=== PATIENT | male | born 1945 | race Caucasian/White ===

== ENCOUNTER 2018-10-12 16:55 | Inpatient (IN) | payer MEDICARE ==
[~2018-10-12] VITALS: Ht 185.4 cm; Wt 92.0 kg
[~2018-10-12 16:55] MED LIST: ATOR20TA37 PO; FLUO20CA19 PO; GLIP5TAB10 PO; PREG75CA PO; TRAZ-137 PO
--- NOTE | 2018-10-12 17:15 | NUR ---
PT REPORTS TO ED C/O SEVERE ABD PAIN. STATES PAIN STARTED AFTER RECENT NEW PRESCRIPTION OF PAIN MEDS R/T R FOOT PAIN. PT STATES HE HAS HAD ABD PAIN, CONSRTIPATION AND BEEN ANURIC X 4 DAYS. PT IS DAILYB PERITONEAL DIALYSIS PT, CATH IN PLACE TO ABD. FAMILY AT BEDSIDE, CALL LIGHT IN REACH. PT REFUSING TO GET INTO GOWN AT THIS TIME.
[2018-10-12] MEDS ORDERED: ONDANSETRON 2MG/ML, 2ML IVPush ONE (17:30)
[2018-10-12] MEDS ORDERED: MORPHINE SULFATE 4 MG/ML, 1ML IVPush PRN (17:30)
[2018-10-12] MEDS ORDERED: AMPICILLIN/SULBACTAM 3 GM in SODIUM CHLORIDE 0.9% 100 ML IV ONE (17:30)
[2018-10-12] MEDS ORDERED: SODIUM CHLORIDE FLUSH 10ML SYR IVF ONE (17:30)
[2018-10-12] MEDS ORDERED: VANCOMYCIN PER PHARMACY MC PRN ×2 (17:30→20:30)
[2018-10-12] MEDS ORDERED: ONDANSETRON 2MG/ML, 2ML ONE (18:00)
[2018-10-12] MEDS ORDERED: VANCOMYCIN 1,700 MG in SODIUM CHLORIDE 0.9% 250 ML IV ONE (18:00)
[2018-10-12] MEDS ORDERED: MORPHINE SULFATE 4 MG/ML, 1ML ONE (18:00)
[2018-10-12 18:09] LABS: HCT (SEDRATE) 37.9 % (39.2-51.8)
[2018-10-12 18:15] LABS: MD YES; MEAN CORPUSCULAR HGB CONC 33.1 g/dL (33.2-36.2); MEAN CORPUSCULAR VOLUME 90.6 fL (81-97); MEAN PLATELET VOLUME 8.9 fL (7.4-10.4); PLATELET COUNT 221 x10^3/uL (130-400); RED BLOOD COUNT 4.21 x10^6/uL (4.38-5.82); RED CELL DISTRIBUTION WIDTH 14.9 % (9.4-14.8)
[2018-10-12 18:22] LABS: ALANINE AMINOTRANSFERASE 14 U/L (12-78); ALBUMIN 2.7 g/dL (3.4-5.0); ANION GAP 12 mmol/L (5-15); CALCIUM 8.4 mg/dL (8.5-10.1); CHLORIDE 104 mmol/L (98-107); CREATININE 7.68 mg/dL (0.7-1.3)
[2018-10-12 18:28] LABS: ALKALINE PHOSPHATASE 94 U/L (45-117); BILIRUBIN,TOTAL 0.3 mg/dL (0.2-1.0); TOTAL PROTEIN 7.2 g/dL (6.4-8.2)
--- NOTE | 2018-10-12 18:32 | NUR ---
PT RESTING ON GURNEY, CALL LIGHT IN REACH, ABX INFUSING PER ORDER. AWAITING CT RESULTS. PT STATES PAIN HAS BECOME TOLERABLE AFTER MEDS GIVEN.
[2018-10-12] MEDS ORDERED: CALC0.25 PO (19:02)
[2018-10-12] MEDS ORDERED: TAMS0.4C2 PO (19:02)
[2018-10-12] MEDS ORDERED: OXYC1TAB7 PO (19:02)
[2018-10-12] MEDS ORDERED: ERGO500017 PO (19:02)
[2018-10-12] MEDS ORDERED: CALC667C PO (19:02)
[2018-10-12] MEDS ORDERED: CLOP75TA52 PO (19:02)
[2018-10-12] MEDS ORDERED: CITA20TA9 PO (19:02)
[2018-10-12] MEDS ORDERED: LEVO100T5 PO (19:02)
[2018-10-12] MEDS ORDERED: CEPH-376 PO (19:02)
--- NOTE | 2018-10-12 19:05 | NUR ---
report to imani justice.
[2018-10-12 19:07] LABS: <PLATELET ESTIMATE> ADEQUATE; <PLT MORPHOLOGY> NORMAL PLT MORPH; <RBC MORPHOLOGY> NORMAL; EOS#(MANUAL) 0.23 x10^3/uL (0.0-0.4); EOS% (MANUAL) 2 % (1-7); LYMPH#(MANUAL) 1.86 x10^3/uL (1-3.4); LYMPHS% (MANUAL) 16 % (22-44); MONOS#(MANUAL) 0.23 x10^3/uL (0.3-2.7); MONOS% (MANUAL) 2 % (2-9); SEG#(MANUAL) 9.28 x10^3/uL (1.8-6.8); SEGS% (MANUAL) 80 % (42-75)
[2018-10-12] MEDS ORDERED: ONDANSETRON ODT 4 MG PO PRN (20:30)
[2018-10-12] MEDS ORDERED: BISACODYL 10 MG SUPP PR PRN (20:30)
[2018-10-12 20:46] VITALS: BP 159/70
[2018-10-12 20:49] LABS: HEMOGLOBIN A1C 7.5 % (4.2-6.3)
[2018-10-12] MEDS ORDERED: PHARMACOKINETIC MONITORING MC PRN (21:00)
[2018-10-12] MEDS ORDERED: OXYcodone/APAP 5/325MG TABLET PO SCH (21:00)
[2018-10-12] MEDS ORDERED: PHARMACOKINETIC CONSULTATION MC ONE (21:00)
[2018-10-12] MEDS: HEPARIN 5,000 UNITS/ML, 1ML SQ SCH (21:11)
[2018-10-12] MEDS: ERGOCALCIFEROL 50,000 UNIT CAPSULE PO SCH (21:12)
[2018-10-12] MEDS: CALCIUM ACETATE 667 MG CAPSULE PO SCH (21:12)
[2018-10-12] MEDS: ATORVASTATIN 20 MG TABLET PO SCH (21:12)
[2018-10-12] MEDS: SODIUM CHLORIDE FLUSH 10ML SYR IVF SCH (21:12)
[2018-10-12] MEDS: TRAZODONE 100MG TABLET PO SCH (21:12)
[2018-10-12] MEDS: OXYcodone/APAP 5/325MG TABLET PO SCH (21:12)
[2018-10-12 21:21] VITALS: BP 159/70
[2018-10-12] MEDS: POLYETHYLENE GLYCOL 17 GM PACKET PO PRN (21:47)
[2018-10-12] MEDS ORDERED: PREGABALIN 75 MG CAPSULE ONE (22:20)
[2018-10-12] MEDS: PREGABALIN 75 MG CAPSULE PO SCH (22:26)
[2018-10-13] MEDS: PIPERACILLIN/TAZO/PMX 3.375GM 50 ML IV SCH ×3 (00:53→12:15)
[2018-10-13 01:42] VITALS: BP 154/68
[2018-10-13] MEDS: ACETAMINOPHEN 325 MG TABLET PO PRN (01:50)
[2018-10-13] MEDS: HEPARIN 5,000 UNITS/ML, 1ML SQ SCH ×2 (04:41→12:15)
[2018-10-13 05:50] LABS: BASOPHILS # (AUTO) 0.01 x10^3/uL (0-0.1); BASOPHILS % (AUTO) 0 % (0-1); EOSINOPHILS # (AUTO) 0.17 x10^3/uL (0-0.4); EOSINOPHILS % (AUTO) 2 % (1-7); LYMPHOCYTES # (AUTO) 0.78 x10^3/uL (1-3.4); LYMPHOCYTES % (AUTO) 8 % (22-44); MD NO; MEAN CORPUSCULAR HEMOGLOBIN 30.2 pg (27.5-34.5); MEAN CORPUSCULAR HGB CONC 33.6 g/dL (33.2-36.2); MEAN CORPUSCULAR VOLUME 89.6 fL (81-97); MEAN PLATELET VOLUME 9.4 fL (7.4-10.4); MONOCYTES # (AUTO) 0.75 x10^3/uL (0.2-0.8); MONOCYTES % (AUTO) 8 % (2-9); NEUTROPHILS # (AUTO) 8.11 x10^3/uL (1.8-6.8); NEUTROPHILS % (AUTO) 83 % (42-75); PLATELET COUNT 211 x10^3/uL (130-400); RED BLOOD COUNT 4.12 x10^6/uL (4.38-5.82); RED CELL DISTRIBUTION WIDTH 14.5 % (9.4-14.8)
[2018-10-13 06:03] VITALS: BP 110/51
[2018-10-13 06:03] LABS: CHLORIDE 104 mmol/L (98-107)
[2018-10-13 06:07] LABS: ALANINE AMINOTRANSFERASE 13 U/L (12-78); ALBUMIN 2.5 g/dL (3.4-5.0); ALKALINE PHOSPHATASE 84 U/L (45-117); ANION GAP 11 mmol/L (5-15); BILIRUBIN,TOTAL 0.3 mg/dL (0.2-1.0); CREATININE 7.55 mg/dL (0.7-1.3); TOTAL PROTEIN 6.8 g/dL (6.4-8.2)
[2018-10-13] MEDS: OXYcodone/APAP 5/325MG TABLET PO SCH (06:25)
[2018-10-13] MEDS ORDERED: DEXTROSE 50%, 50ML SYRINGE IVPush PRN (06:30)
[2018-10-13] MEDS ORDERED: DEXTROSE 4 GM TAB.CHEW PO PRN (06:30)
[2018-10-13] MEDS ORDERED: GLUCAGON 1 MG IM PRN (06:30)
[2018-10-13] MEDS: SODIUM CHLORIDE FLUSH 10ML SYR IVF SCH ×3 (07:41→22:12)
[2018-10-13] MEDS: LEVOTHYROXINE 100 MCG TABLET PO SCH (07:59)
[2018-10-13] MEDS: CALCITRIOL 0.25 MCG CAPSULE PO SCH (07:59)
[2018-10-13] MEDS: TAMSULOSIN 0.4 MG CAP.ER.24H PO SCH (07:59)
[2018-10-13] MEDS: CLOPIDOGREL 75 MG TABLET PO SCH (08:00)
[2018-10-13] MEDS: CALCIUM ACETATE 667 MG CAPSULE PO SCH ×3 (08:00→22:11)
[2018-10-13] MEDS: CITALOPRAM 20 MG TABLET PO SCH (08:00)
[2018-10-13] MEDS: SENNA/DOCUSATE TABLET PO SCH (08:00)
[2018-10-13 08:15] VITALS: BP 101/59
[2018-10-13] MEDS ORDERED: PREGABALIN 75 MG CAPSULE PO SCH (09:00)
[2018-10-13] MEDS: INSULIN LISPRO 100 UNITS/ML, PEN SQ-INSULIN SCH ×3 (11:00→21:00)
[2018-10-13 14:00] VITALS: BP 100/61
[2018-10-13] MEDS ORDERED: HEPARIN 5,000 UNITS/ML, 1ML IV ONE (17:00)
[2018-10-13] MEDS ORDERED: HEPARIN 5,000 UNITS/ML, 1ML IV PRN (17:00)
[2018-10-13] MEDS ORDERED: HEPARIN 25,000 UNITS/500ML PMX 500 ML IV PRN (17:00)
[2018-10-13 19:00] VITALS: BP 95/55
[2018-10-13] MEDS ORDERED: PIPERACILLIN/TAZO 2.25 GM in NS 50 ML IV SCH (21:00)
[2018-10-13] MEDS: ATORVASTATIN 20 MG TABLET PO SCH (22:10)
[2018-10-13] MEDS: PIPERACILLIN/TAZO 2.25 GM in NS 50 ML IV SCH (22:10)
[2018-10-13] MEDS: PREGABALIN 75 MG CAPSULE PO SCH (22:10)
[2018-10-13] MEDS: TRAZODONE 100MG TABLET PO SCH (22:11)
[2018-10-13] MEDS: POLYETHYLENE GLYCOL 17 GM PACKET PO PRN (22:14)
[2018-10-14 02:00] VITALS: BP 92/50
[2018-10-14] MEDS: PIPERACILLIN/TAZO 2.25 GM in NS 50 ML IV SCH ×2 (05:33→14:00)
[2018-10-14 05:43] LABS: BASOPHILS # (AUTO) 0.04 x10^3/uL (0-0.1); BASOPHILS % (AUTO) 1 % (0-1); EOSINOPHILS # (AUTO) 0.74 x10^3/uL (0-0.4); EOSINOPHILS % (AUTO) 9 % (1-7); LYMPHOCYTES # (AUTO) 1.37 x10^3/uL (1-3.4); LYMPHOCYTES % (AUTO) 17 % (22-44); MD NO; MEAN CORPUSCULAR HEMOGLOBIN 30.3 pg (27.5-34.5); MEAN CORPUSCULAR HGB CONC 33.7 g/dL (33.2-36.2); MEAN CORPUSCULAR VOLUME 90.1 fL (81-97); MEAN PLATELET VOLUME 9.1 fL (7.4-10.4); MONOCYTES # (AUTO) 0.74 x10^3/uL (0.2-0.8); MONOCYTES % (AUTO) 9 % (2-9); NEUTROPHILS % (AUTO) 64 % (42-75); PLATELET COUNT 209 x10^3/uL (130-400); RED BLOOD COUNT 3.59 x10^6/uL (4.38-5.82); RED CELL DISTRIBUTION WIDTH 14.5 % (9.4-14.8)
[2018-10-14 05:49] LABS: ANION GAP 10 mmol/L (5-15); CALCIUM 7.5 mg/dL (8.5-10.1); CHLORIDE 101 mmol/L (98-107); CREATININE 8.44 mg/dL (0.7-1.3)
[2018-10-14 05:50] LABS: VANCOMYCIN,RANDOM 18.3 mcg/mL
[2018-10-14] MEDS: INSULIN LISPRO 100 UNITS/ML, PEN SQ-INSULIN SCH ×4 (07:00→21:00)
[2018-10-14 08:00] VITALS: BP 93/57
[2018-10-14] MEDS: TAMSULOSIN 0.4 MG CAP.ER.24H PO SCH (08:42)
[2018-10-14] MEDS: CITALOPRAM 20 MG TABLET PO SCH (08:42)
[2018-10-14] MEDS: SODIUM CHLORIDE FLUSH 10ML SYR IVF SCH ×2 (08:42→21:23)
[2018-10-14] MEDS: CALCITRIOL 0.25 MCG CAPSULE PO SCH (08:43)
[2018-10-14] MEDS: CLOPIDOGREL 75 MG TABLET PO SCH (08:43)
[2018-10-14] MEDS: CALCIUM ACETATE 667 MG CAPSULE PO SCH ×3 (08:43→21:22)
[2018-10-14] MEDS: LEVOTHYROXINE 100 MCG TABLET PO SCH (08:44)
[2018-10-14] MEDS: SENNA/DOCUSATE TABLET PO SCH (08:44)
[2018-10-14] MEDS ORDERED: HEPARIN 1,000 UNITS/ML, 10ML ONE ×2 (11:57→15:18)
[2018-10-14] MEDS ORDERED: NALOXONE 1 MG/ML, 2ML ONE (11:57)
[2018-10-14] MEDS ORDERED: MIDAZOLAM 1 MG/ML, 5ML ONE (11:57)
[2018-10-14] MEDS ORDERED: FENTANYL PF 100 MCG/2ML ONE (11:57)
[2018-10-14] MEDS ORDERED: FLUMAZENIL 0.1 MG/1 ML, 5ML ONE (11:57)
[2018-10-14] MEDS ORDERED: PROTAMINE SULFATE 10 MG/ML, 25ML ONE (11:58)
[2018-10-14] MEDS ORDERED: VISIPAQUE 270 MG/ML, 50ML BOTTLE ONE (12:30)
[2018-10-14] MEDS ORDERED: VISIPAQUE 270 MG/ML, 150ML BOTTLE ONE (12:30)
[2018-10-14 18:30] VITALS: BP 104/62
[2018-10-14] MEDS: ATORVASTATIN 20 MG TABLET PO SCH (21:23)
[2018-10-14] MEDS: TRAZODONE 100MG TABLET PO SCH (21:23)
[2018-10-14] MEDS: PREGABALIN 75 MG CAPSULE PO SCH (21:23)
[2018-10-15 00:41] VITALS: BP 95/60
[2018-10-15] MEDS: PIPERACILLIN/TAZO 2.25 GM in NS 50 ML IV SCH ×3 (01:44→23:35)
[2018-10-15 05:42] LABS: ALBUMIN 1.9 g/dL (3.4-5.0); ANION GAP 7 mmol/L (5-15); CALCIUM 7.2 mg/dL (8.5-10.1); CHLORIDE 103 mmol/L (98-107)
[2018-10-15 05:49] LABS: % IRON SATURATION 13 % (20-55); ALANINE AMINOTRANSFERASE 13 U/L (12-78); ALKALINE PHOSPHATASE 61 U/L (45-117); BILIRUBIN,TOTAL 0.4 mg/dL (0.2-1.0); CREATININE 8.69 mg/dL (0.7-1.3); IRON LEVEL 24 mcg/dL (65-175); TOTAL IRON BINDING CAPACITY 188 mcg/dL (250-450); TOTAL PROTEIN 5.8 g/dL (6.4-8.2); VANCOMYCIN,RANDOM 15.9 mcg/mL
[2018-10-15 06:14] LABS: BASOPHILS # (AUTO) 0.02 x10^3/uL (0-0.1); BASOPHILS % (AUTO) 0 % (0-1); EOSINOPHILS # (AUTO) 0.47 x10^3/uL (0-0.4); EOSINOPHILS % (AUTO) 6 % (1-7); LYMPHOCYTES # (AUTO) 0.91 x10^3/uL (1-3.4); LYMPHOCYTES % (AUTO) 11 % (22-44); MD NO; MEAN CORPUSCULAR HEMOGLOBIN 29.7 pg (27.5-34.5); MEAN CORPUSCULAR HGB CONC 32.9 g/dL (33.2-36.2); MEAN CORPUSCULAR VOLUME 90.3 fL (81-97); MEAN PLATELET VOLUME 8.7 fL (7.4-10.4); MONOCYTES # (AUTO) 0.86 x10^3/uL (0.2-0.8); MONOCYTES % (AUTO) 10 % (2-9); NEUTROPHILS # (AUTO) 6.34 x10^3/uL (1.8-6.8); NEUTROPHILS % (AUTO) 74 % (42-75); PLATELET COUNT 207 x10^3/uL (130-400); RED BLOOD COUNT 3.53 x10^6/uL (4.38-5.82); RED CELL DISTRIBUTION WIDTH 14.3 % (9.4-14.8)
[2018-10-15 06:44] VITALS: BP 120/68
[2018-10-15] MEDS: INSULIN LISPRO 100 UNITS/ML, PEN SQ-INSULIN SCH ×4 (07:00→21:00)
[2018-10-15 07:12] LABS: HCT (SEDRATE) 31.9 % (39.2-51.8)
[2018-10-15] MEDS: CALCITRIOL 0.25 MCG CAPSULE PO SCH (07:31)
[2018-10-15] MEDS: CLOPIDOGREL 75 MG TABLET PO SCH (07:32)
[2018-10-15] MEDS: CITALOPRAM 20 MG TABLET PO SCH (07:32)
[2018-10-15] MEDS: LEVOTHYROXINE 100 MCG TABLET PO SCH (07:32)
[2018-10-15] MEDS: SENNA/DOCUSATE TABLET PO SCH (07:32)
[2018-10-15] MEDS: SODIUM CHLORIDE FLUSH 10ML SYR IVF SCH ×2 (07:33→20:50)
[2018-10-15] MEDS: CALCIUM ACETATE 667 MG CAPSULE PO SCH ×3 (07:33→20:49)
[2018-10-15] MEDS: TAMSULOSIN 0.4 MG CAP.ER.24H PO SCH (07:33)
[2018-10-15] MEDS: GENTAMICIN CRM 0.1%, 30GM TP SCH (09:00)
[2018-10-15] MEDS: ACETAMINOPHEN 325 MG TABLET PO PRN (10:26)
[2018-10-15] MEDS ORDERED: VANCOMYCIN PMX 1GM/200ML 200 ML IVPB ONE (11:00)
[2018-10-15] MEDS: POLYETHYLENE GLYCOL 17 GM PACKET PO PRN (11:02)
[2018-10-15 12:40] VITALS: BP 112/57
[2018-10-15 19:48] VITALS: BP 113/65
[2018-10-15] MEDS: TRAZODONE 100MG TABLET PO SCH (20:49)
[2018-10-15] MEDS: ATORVASTATIN 20 MG TABLET PO SCH (20:49)
[2018-10-15] MEDS: PREGABALIN 75 MG CAPSULE PO SCH (20:49)
[2018-10-16 01:10] VITALS: BP 116/81
[2018-10-16 06:03] LABS: CHLORIDE 101 mmol/L (98-107)
[2018-10-16 06:08] LABS: BASOPHILS # (AUTO) 0.03 x10^3/uL (0-0.1); BASOPHILS % (AUTO) 0 % (0-1); EOSINOPHILS # (AUTO) 0.43 x10^3/uL (0-0.4); EOSINOPHILS % (AUTO) 4 % (1-7); LYMPHOCYTES # (AUTO) 0.83 x10^3/uL (1-3.4); LYMPHOCYTES % (AUTO) 8 % (22-44); MD NO; MEAN CORPUSCULAR HEMOGLOBIN 30.2 pg (27.5-34.5); MEAN CORPUSCULAR HGB CONC 33.6 g/dL (33.2-36.2); MEAN CORPUSCULAR VOLUME 89.7 fL (81-97); MEAN PLATELET VOLUME 9.1 fL (7.4-10.4); MONOCYTES # (AUTO) 1.09 x10^3/uL (0.2-0.8); MONOCYTES % (AUTO) 10 % (2-9); NEUTROPHILS # (AUTO) 8.57 x10^3/uL (1.8-6.8); NEUTROPHILS % (AUTO) 78 % (42-75); PLATELET COUNT 210 x10^3/uL (130-400); RED BLOOD COUNT 3.55 x10^6/uL (4.38-5.82); RED CELL DISTRIBUTION WIDTH 14.5 % (9.4-14.8)
[2018-10-16 06:10] LABS: ALANINE AMINOTRANSFERASE 14 U/L (12-78); ALKALINE PHOSPHATASE 64 U/L (45-117); ANION GAP 9 mmol/L (5-15); BILIRUBIN,TOTAL 0.3 mg/dL (0.2-1.0); CALCIUM 7.7 mg/dL (8.5-10.1); CREATININE 9.26 mg/dL (0.7-1.3); TOTAL PROTEIN 6.1 g/dL (6.4-8.2)
[2018-10-16] MEDS: INSULIN LISPRO 100 UNITS/ML, PEN SQ-INSULIN SCH ×4 (07:00→21:35)
[2018-10-16 07:11] VITALS: BP 124/66
[2018-10-16] MEDS: CLOPIDOGREL 75 MG TABLET PO SCH (08:18)
[2018-10-16] MEDS: LEVOTHYROXINE 100 MCG TABLET PO SCH (08:18)
[2018-10-16] MEDS: CALCIUM ACETATE 667 MG CAPSULE PO SCH ×3 (08:18→21:35)
[2018-10-16] MEDS: CITALOPRAM 20 MG TABLET PO SCH (08:18)
[2018-10-16] MEDS: TAMSULOSIN 0.4 MG CAP.ER.24H PO SCH (08:18)
[2018-10-16] MEDS: SENNA/DOCUSATE TABLET PO SCH (08:19)
[2018-10-16] MEDS: GENTAMICIN CRM 0.1%, 30GM TP SCH (08:23)
[2018-10-16] MEDS: SODIUM CHLORIDE FLUSH 10ML SYR IVF SCH ×2 (08:24→21:35)
[2018-10-16] MEDS: PIPERACILLIN/TAZO 2.25 GM in NS 50 ML IV SCH ×2 (13:17→23:56)
[2018-10-16 13:21] VITALS: BP 116/68
[2018-10-16 18:40] VITALS: BP 120/63
[2018-10-16] MEDS: ATORVASTATIN 20 MG TABLET PO SCH (21:35)
[2018-10-16] MEDS: TRAZODONE 100MG TABLET PO SCH (21:35)
[2018-10-16] MEDS: PREGABALIN 75 MG CAPSULE PO SCH (21:35)
[2018-10-16 23:35] LABS: CLOSTRIDIUM DIFFICILE ANTIGEN POSITIVE; CLOSTRIDIUM DIFFICILE TOXIN NEGATIVE (Negative)
[2018-10-17 00:45] VITALS: BP 121/66
[2018-10-17] MEDS: INSULIN LISPRO 100 UNITS/ML, PEN SQ-INSULIN SCH ×4 (07:00→21:40)
[2018-10-17 07:52] VITALS: BP 165/68
[2018-10-17] MEDS: GENTAMICIN CRM 0.1%, 30GM TP SCH (09:00)
[2018-10-17] MEDS: SENNA/DOCUSATE TABLET PO SCH (09:00)
[2018-10-17] MEDS: SODIUM CHLORIDE FLUSH 10ML SYR IVF SCH ×2 (09:58→21:00)
[2018-10-17] MEDS: VANCOMYCIN 50 MG/ML ORAL SUSP PO SCH ×3 (09:58→21:39)
[2018-10-17] MEDS: LEVOTHYROXINE 100 MCG TABLET PO SCH (09:59)
[2018-10-17] MEDS: TAMSULOSIN 0.4 MG CAP.ER.24H PO SCH (10:00)
[2018-10-17] MEDS: ACETAMINOPHEN 325 MG TABLET PO PRN (10:00)
[2018-10-17] MEDS: CALCIUM ACETATE 667 MG CAPSULE PO SCH ×3 (10:00→21:39)
[2018-10-17] MEDS: CLOPIDOGREL 75 MG TABLET PO SCH (10:00)
[2018-10-17] MEDS: CITALOPRAM 20 MG TABLET PO SCH (10:00)
[2018-10-17] MEDS: PIPERACILLIN/TAZO 2.25 GM in NS 50 ML IV SCH (12:11)
[2018-10-17 12:44] VITALS: BP 133/67
[2018-10-17 18:41] VITALS: BP 138/70
[2018-10-17] MEDS: ATORVASTATIN 20 MG TABLET PO SCH (21:39)
[2018-10-17] MEDS: PREGABALIN 75 MG CAPSULE PO SCH (21:40)
[2018-10-17] MEDS: TRAZODONE 100MG TABLET PO SCH (21:40)
[2018-10-18] MEDS: PIPERACILLIN/TAZO 2.25 GM in DEXTROSE 5% 50 ML IV SCH ×2 (00:08→12:18)
[2018-10-18 01:41] VITALS: BP 136/83
[2018-10-18] MEDS: VANCOMYCIN 50 MG/ML ORAL SUSP PO SCH ×4 (02:25→20:45)
[2018-10-18] MEDS: INSULIN LISPRO 100 UNITS/ML, PEN SQ-INSULIN SCH ×4 (07:00→20:45)
[2018-10-18 07:19] LABS: HCT (SEDRATE) 32.2 % (39.2-51.8)
[2018-10-18 07:22] LABS: BASOPHILS # (AUTO) 0.04 x10^3/uL (0-0.1); BASOPHILS % (AUTO) 0 % (0-1); EOSINOPHILS # (AUTO) 0.51 x10^3/uL (0-0.4); EOSINOPHILS % (AUTO) 4 % (1-7); LYMPHOCYTES # (AUTO) 1.27 x10^3/uL (1-3.4); LYMPHOCYTES % (AUTO) 10 % (22-44); MD NO; MEAN CORPUSCULAR HEMOGLOBIN 29.1 pg (27.5-34.5); MEAN CORPUSCULAR HGB CONC 32.3 g/dL (33.2-36.2); MONOCYTES # (AUTO) 1.11 x10^3/uL (0.2-0.8); MONOCYTES % (AUTO) 9 % (2-9); NEUTROPHILS # (AUTO) 10.16 x10^3/uL (1.8-6.8); NEUTROPHILS % (AUTO) 78 % (42-75); PLATELET COUNT 238 x10^3/uL (130-400); RED BLOOD COUNT 3.62 x10^6/uL (4.38-5.82); RED CELL DISTRIBUTION WIDTH 14.7 % (9.4-14.8)
[2018-10-18 07:24] LABS: ALANINE AMINOTRANSFERASE 16 U/L (12-78); ALBUMIN 1.9 g/dL (3.4-5.0); ANION GAP 9 mmol/L (5-15); CALCIUM 8.2 mg/dL (8.5-10.1); CHLORIDE 99 mmol/L (98-107); CREATININE 8.83 mg/dL (0.7-1.3)
[2018-10-18 07:30] LABS: ALKALINE PHOSPHATASE 67 U/L (45-117); BILIRUBIN,TOTAL 0.4 mg/dL (0.2-1.0); TOTAL PROTEIN 6.2 g/dL (6.4-8.2); VANCOMYCIN,RANDOM 20.7 mcg/mL
[2018-10-18 07:51] VITALS: BP 111/53
[2018-10-18] MEDS: CALCITRIOL 0.25 MCG CAPSULE PO SCH (08:28)
[2018-10-18] MEDS: TAMSULOSIN 0.4 MG CAP.ER.24H PO SCH (08:28)
[2018-10-18] MEDS: LEVOTHYROXINE 100 MCG TABLET PO SCH (08:29)
[2018-10-18] MEDS: CLOPIDOGREL 75 MG TABLET PO SCH (08:29)
[2018-10-18] MEDS: SENNA/DOCUSATE TABLET PO SCH (08:29)
[2018-10-18] MEDS: CITALOPRAM 20 MG TABLET PO SCH (08:29)
[2018-10-18] MEDS: CALCIUM ACETATE 667 MG CAPSULE PO SCH ×3 (08:29→20:45)
[2018-10-18] MEDS: SODIUM CHLORIDE FLUSH 10ML SYR IVF SCH ×2 (08:30→20:46)
[2018-10-18] MEDS: GENTAMICIN CRM 0.1%, 30GM TP SCH (08:32)
[2018-10-18 09:00] VITALS: BP 97/58
[2018-10-18] MEDS: ACETAMINOPHEN 325 MG TABLET PO PRN ×2 (11:21→20:45)
[2018-10-18 13:19] VITALS: BP 118/65
[2018-10-18] MEDS ORDERED: CATHFLO-ALTEPLASE 2 MG/2 ML CATHFLUSH ONE (13:30)
[2018-10-18] MEDS: ATORVASTATIN 20 MG TABLET PO SCH (20:45)
[2018-10-18] MEDS: PREGABALIN 75 MG CAPSULE PO SCH (20:45)
[2018-10-18] MEDS: TRAZODONE 100MG TABLET PO SCH (20:45)
[2018-10-18 20:50] VITALS: BP 146/64
[2018-10-19] MEDS: PIPERACILLIN/TAZO 2.25 GM in DEXTROSE 5% 50 ML IV SCH ×3 (01:37→23:41)
[2018-10-19] MEDS: ACETAMINOPHEN 325 MG TABLET PO PRN ×2 (01:37→21:33)
[2018-10-19 02:56] VITALS: BP 113/64
[2018-10-19] MEDS: VANCOMYCIN 50 MG/ML ORAL SUSP PO SCH ×4 (03:11→21:32)
[2018-10-19] MEDS: INSULIN LISPRO 100 UNITS/ML, PEN SQ-INSULIN SCH ×4 (07:00→21:33)
[2018-10-19] MEDS: CALCIUM ACETATE 667 MG CAPSULE PO SCH ×3 (08:36→21:33)
[2018-10-19] MEDS: CALCITRIOL 0.25 MCG CAPSULE PO SCH (08:36)
[2018-10-19] MEDS: CLOPIDOGREL 75 MG TABLET PO SCH (08:36)
[2018-10-19] MEDS: CITALOPRAM 20 MG TABLET PO SCH (08:36)
[2018-10-19] MEDS: TAMSULOSIN 0.4 MG CAP.ER.24H PO SCH (08:36)
[2018-10-19] MEDS: LEVOTHYROXINE 100 MCG TABLET PO SCH (08:37)
[2018-10-19] MEDS: SENNA/DOCUSATE TABLET PO SCH (08:39)
[2018-10-19 08:48] LABS: BASOPHILS # (AUTO) 0.06 x10^3/uL (0-0.1); BASOPHILS % (AUTO) 1 % (0-1); EOSINOPHILS # (AUTO) 0.72 x10^3/uL (0-0.4); EOSINOPHILS % (AUTO) 6 % (1-7); LYMPHOCYTES # (AUTO) 1.15 x10^3/uL (1-3.4); LYMPHOCYTES % (AUTO) 10 % (22-44); MD NO; MEAN CORPUSCULAR HEMOGLOBIN 29.7 pg (27.5-34.5); MEAN CORPUSCULAR HGB CONC 32.8 g/dL (33.2-36.2); MEAN CORPUSCULAR VOLUME 90.6 fL (81-97); MEAN PLATELET VOLUME 8.7 fL (7.4-10.4); MONOCYTES # (AUTO) 0.96 x10^3/uL (0.2-0.8); MONOCYTES % (AUTO) 8 % (2-9); NEUTROPHILS # (AUTO) 9.16 x10^3/uL (1.8-6.8); NEUTROPHILS % (AUTO) 76 % (42-75); PLATELET COUNT 254 x10^3/uL (130-400); RED BLOOD COUNT 3.53 x10^6/uL (4.38-5.82); RED CELL DISTRIBUTION WIDTH 14.8 % (9.4-14.8)
[2018-10-19] MEDS: GENTAMICIN CRM 0.1%, 30GM TP SCH (08:49)
[2018-10-19] MEDS: SODIUM CHLORIDE FLUSH 10ML SYR IVF SCH ×2 (08:49→21:33)
[2018-10-19 09:02] LABS: ALANINE AMINOTRANSFERASE 14 U/L (12-78); ALBUMIN 1.9 g/dL (3.4-5.0); ANION GAP 10 mmol/L (5-15); CALCIUM 8.2 mg/dL (8.5-10.1); CHLORIDE 102 mmol/L (98-107); CREATININE 8.23 mg/dL (0.7-1.3)
[2018-10-19 09:04] LABS: ALKALINE PHOSPHATASE 67 U/L (45-117); BILIRUBIN,TOTAL 0.3 mg/dL (0.2-1.0); TOTAL PROTEIN 6.2 g/dL (6.4-8.2)
[2018-10-19 09:58] VITALS: BP 90/51
[2018-10-19 16:34] VITALS: BP 100/52
[2018-10-19 19:41] VITALS: BP 105/56
[2018-10-19] MEDS: ERGOCALCIFEROL 50,000 UNIT CAPSULE PO SCH (21:33)
[2018-10-19] MEDS: ATORVASTATIN 20 MG TABLET PO SCH (21:33)
[2018-10-19] MEDS: TRAZODONE 100MG TABLET PO SCH (21:33)
[2018-10-19] MEDS: PREGABALIN 75 MG CAPSULE PO SCH (21:33)
[2018-10-20 01:29] VITALS: BP 97/54
[2018-10-20] MEDS: VANCOMYCIN 50 MG/ML ORAL SUSP PO SCH ×4 (03:32→22:16)
[2018-10-20 05:27] LABS: BASOPHILS # (AUTO) 0.15 x10^3/uL (0-0.1); BASOPHILS % (AUTO) 1 % (0-1); EOSINOPHILS # (AUTO) 0.69 x10^3/uL (0-0.4); EOSINOPHILS % (AUTO) 6 % (1-7); LYMPHOCYTES # (AUTO) 1.43 x10^3/uL (1-3.4); LYMPHOCYTES % (AUTO) 12 % (22-44); MD NO; MEAN CORPUSCULAR HEMOGLOBIN 29.6 pg (27.5-34.5); MEAN CORPUSCULAR HGB CONC 32.7 g/dL (33.2-36.2); MEAN CORPUSCULAR VOLUME 90.3 fL (81-97); MEAN PLATELET VOLUME 8.7 fL (7.4-10.4); MONOCYTES # (AUTO) 1.04 x10^3/uL (0.2-0.8); MONOCYTES % (AUTO) 9 % (2-9); NEUTROPHILS # (AUTO) 8.54 x10^3/uL (1.8-6.8); NEUTROPHILS % (AUTO) 72 % (42-75); PLATELET COUNT 263 x10^3/uL (130-400); RED BLOOD COUNT 3.53 x10^6/uL (4.38-5.82); RED CELL DISTRIBUTION WIDTH 14.9 % (9.4-14.8)
[2018-10-20 05:39] LABS: CHLORIDE 104 mmol/L (98-107)
[2018-10-20 05:45] LABS: ALANINE AMINOTRANSFERASE 25 U/L (12-78); ALBUMIN 1.9 g/dL (3.4-5.0); ALKALINE PHOSPHATASE 79 U/L (45-117); ANION GAP 11 mmol/L (5-15); BILIRUBIN,TOTAL 0.2 mg/dL (0.2-1.0); CALCIUM 8.4 mg/dL (8.5-10.1); CREATININE 7.66 mg/dL (0.7-1.3); TOTAL PROTEIN 6.4 g/dL (6.4-8.2); VANCOMYCIN,RANDOM 15.5 mcg/mL
[2018-10-20] MEDS ORDERED: VANCOMYCIN PMX 1GM/200ML 200 ML IV ONE (06:00)
[2018-10-20] MEDS: ACETAMINOPHEN 325 MG TABLET PO PRN (06:39)
[2018-10-20 07:58] VITALS: BP 132/71
[2018-10-20] MEDS ORDERED: MORPHINE SULFATE 4 MG/ML, 1ML ONE (08:14)
[2018-10-20] MEDS: MORPHINE SULFATE 4 MG/ML, 1ML IVPush PRN ×4 (08:21→20:44)
[2018-10-20] MEDS: GENTAMICIN CRM 0.1%, 30GM TP SCH (09:00)
[2018-10-20] MEDS: SENNA/DOCUSATE TABLET PO SCH (09:00)
[2018-10-20] MEDS: SODIUM CHLORIDE FLUSH 10ML SYR IVF SCH ×2 (09:00→20:34)
[2018-10-20] MEDS: INSULIN LISPRO 100 UNITS/ML, PEN SQ-INSULIN SCH ×4 (09:30→20:35)
[2018-10-20] MEDS: CITALOPRAM 20 MG TABLET PO SCH (09:31)
[2018-10-20] MEDS: CALCIUM ACETATE 667 MG CAPSULE PO SCH ×3 (09:31→20:34)
[2018-10-20] MEDS: LEVOTHYROXINE 100 MCG TABLET PO SCH (09:32)
[2018-10-20] MEDS: CALCITRIOL 0.25 MCG CAPSULE PO SCH (09:32)
[2018-10-20] MEDS: CLOPIDOGREL 75 MG TABLET PO SCH (09:32)
[2018-10-20] MEDS: TAMSULOSIN 0.4 MG CAP.ER.24H PO SCH (09:33)
[2018-10-20] MEDS: CEFTRIAXONE PMX 1GM/50ML 50 ML IV SCH (12:13)
[2018-10-20 13:59] VITALS: BP 122/69
[2018-10-20 19:21] VITALS: BP 126/74
[2018-10-20] MEDS: ATORVASTATIN 20 MG TABLET PO SCH (20:34)
[2018-10-20] MEDS: PREGABALIN 75 MG CAPSULE PO SCH (20:34)
[2018-10-20] MEDS: TRAZODONE 100MG TABLET PO SCH (20:35)
[2018-10-21 01:30] VITALS: BP 119/68
[2018-10-21] MEDS: VANCOMYCIN 50 MG/ML ORAL SUSP PO SCH ×4 (03:58→23:08)
[2018-10-21] MEDS: MORPHINE SULFATE 4 MG/ML, 1ML IVPush PRN ×5 (03:59→22:07)
[2018-10-21 05:50] LABS: BASOPHILS # (AUTO) 0.03 x10^3/uL (0-0.1); BASOPHILS % (AUTO) 0 % (0-1); EOSINOPHILS # (AUTO) 0.64 x10^3/uL (0-0.4); EOSINOPHILS % (AUTO) 6 % (1-7); LYMPHOCYTES # (AUTO) 1.27 x10^3/uL (1-3.4); LYMPHOCYTES % (AUTO) 11 % (22-44); MD NO; MEAN CORPUSCULAR HEMOGLOBIN 29.8 pg (27.5-34.5); MEAN CORPUSCULAR HGB CONC 33.2 g/dL (33.2-36.2); MEAN CORPUSCULAR VOLUME 89.7 fL (81-97); MEAN PLATELET VOLUME 8.8 fL (7.4-10.4); MONOCYTES # (AUTO) 0.88 x10^3/uL (0.2-0.8); MONOCYTES % (AUTO) 8 % (2-9); NEUTROPHILS # (AUTO) 8.83 x10^3/uL (1.8-6.8); NEUTROPHILS % (AUTO) 76 % (42-75); PLATELET COUNT 282 x10^3/uL (130-400); RED BLOOD COUNT 3.44 x10^6/uL (4.38-5.82); RED CELL DISTRIBUTION WIDTH 14.6 % (9.4-14.8)
[2018-10-21 06:00] LABS: CHLORIDE 103 mmol/L (98-107)
[2018-10-21 06:06] LABS: ALANINE AMINOTRANSFERASE 30 U/L (12-78); ALBUMIN 1.8 g/dL (3.4-5.0); ALKALINE PHOSPHATASE 91 U/L (45-117); ANION GAP 6 mmol/L (5-15); BILIRUBIN,TOTAL 0.4 mg/dL (0.2-1.0); CALCIUM 8.6 mg/dL (8.5-10.1); CREATININE 6.83 mg/dL (0.7-1.3); TOTAL PROTEIN 6.2 g/dL (6.4-8.2)
[2018-10-21] MEDS: INSULIN LISPRO 100 UNITS/ML, PEN SQ-INSULIN SCH ×4 (07:00→20:38)
[2018-10-21 07:05] VITALS: BP 122/72
[2018-10-21] MEDS: CALCIUM ACETATE 667 MG CAPSULE PO SCH ×3 (09:00→20:38)
[2018-10-21] MEDS: SENNA/DOCUSATE TABLET PO SCH (09:00)
[2018-10-21] MEDS: CALCITRIOL 0.25 MCG CAPSULE PO SCH (09:00)
[2018-10-21] MEDS: TAMSULOSIN 0.4 MG CAP.ER.24H PO SCH (09:00)
[2018-10-21] MEDS: SODIUM CHLORIDE FLUSH 10ML SYR IVF SCH ×2 (09:00→20:38)
[2018-10-21] MEDS: CLOPIDOGREL 75 MG TABLET PO SCH (09:00)
[2018-10-21] MEDS: CITALOPRAM 20 MG TABLET PO SCH (09:00)
[2018-10-21] MEDS: LEVOTHYROXINE 100 MCG TABLET PO SCH (09:00)
[2018-10-21] MEDS: GENTAMICIN CRM 0.1%, 30GM TP SCH (09:00)
[2018-10-21] MEDS: CEFTRIAXONE PMX 1GM/50ML 50 ML IV SCH (12:06)
[2018-10-21 13:04] VITALS: BP 126/76
[2018-10-21 20:00] VITALS: BP 130/73
[2018-10-21] MEDS: ATORVASTATIN 20 MG TABLET PO SCH (20:38)
[2018-10-21] MEDS: PREGABALIN 75 MG CAPSULE PO SCH (20:38)
[2018-10-21] MEDS: TRAZODONE 100MG TABLET PO SCH (20:38)
[2018-10-22 01:01] VITALS: BP 118/69
[2018-10-22] MEDS: VANCOMYCIN 50 MG/ML ORAL SUSP PO SCH ×4 (05:13→23:39)
[2018-10-22 05:36] LABS: BASOPHILS # (AUTO) 0.05 x10^3/uL (0-0.1); BASOPHILS % (AUTO) 1 % (0-1); EOSINOPHILS % (AUTO) 6 % (1-7); LYMPHOCYTES # (AUTO) 1.24 x10^3/uL (1-3.4); LYMPHOCYTES % (AUTO) 11 % (22-44); MD NO; MEAN CORPUSCULAR HEMOGLOBIN 29.4 pg (27.5-34.5); MEAN CORPUSCULAR HGB CONC 32.5 g/dL (33.2-36.2); MEAN CORPUSCULAR VOLUME 90.5 fL (81-97); MEAN PLATELET VOLUME 8.4 fL (7.4-10.4); MONOCYTES # (AUTO) 1.03 x10^3/uL (0.2-0.8); MONOCYTES % (AUTO) 9 % (2-9); NEUTROPHILS # (AUTO) 8.28 x10^3/uL (1.8-6.8); NEUTROPHILS % (AUTO) 73 % (42-75); PLATELET COUNT 291 x10^3/uL (130-400); RED BLOOD COUNT 3.37 x10^6/uL (4.38-5.82); RED CELL DISTRIBUTION WIDTH 14.7 % (9.4-14.8)
[2018-10-22 05:45] LABS: ALANINE AMINOTRANSFERASE 29 U/L (12-78); ALBUMIN 1.9 g/dL (3.4-5.0); ANION GAP 2 mmol/L (5-15); CALCIUM 8.2 mg/dL (8.5-10.1); CHLORIDE 102 mmol/L (98-107); CREATININE 6.96 mg/dL (0.7-1.3)
[2018-10-22 05:47] LABS: ALKALINE PHOSPHATASE 82 U/L (45-117); BILIRUBIN,TOTAL 0.3 mg/dL (0.2-1.0); TOTAL PROTEIN 6.5 g/dL (6.4-8.2)
[2018-10-22 08:03] VITALS: BP 122/67
[2018-10-22] MEDS: INSULIN LISPRO 100 UNITS/ML, PEN SQ-INSULIN SCH ×4 (08:26→21:00)
[2018-10-22] MEDS: SENNA/DOCUSATE TABLET PO SCH (09:07)
[2018-10-22] MEDS: GENTAMICIN CRM 0.1%, 30GM TP SCH (09:08)
[2018-10-22] MEDS: CALCIUM ACETATE 667 MG CAPSULE PO SCH ×3 (09:26→20:56)
[2018-10-22] MEDS: CLOPIDOGREL 75 MG TABLET PO SCH (09:26)
[2018-10-22] MEDS: CALCITRIOL 0.25 MCG CAPSULE PO SCH (09:26)
[2018-10-22] MEDS: SODIUM CHLORIDE FLUSH 10ML SYR IVF SCH ×2 (09:26→20:54)
[2018-10-22] MEDS: LEVOTHYROXINE 100 MCG TABLET PO SCH (09:26)
[2018-10-22] MEDS: TAMSULOSIN 0.4 MG CAP.ER.24H PO SCH (09:26)
[2018-10-22] MEDS: CITALOPRAM 20 MG TABLET PO SCH (09:26)
[2018-10-22] MEDS: CEFTRIAXONE PMX 1GM/50ML 50 ML IV SCH (12:20)
[2018-10-22 14:19] VITALS: BP 125/69
[2018-10-22] MEDS: MORPHINE SULFATE 4 MG/ML, 1ML IVPush PRN (15:41)
[2018-10-22 19:51] VITALS: BP 132/69
[2018-10-22] MEDS: ATORVASTATIN 20 MG TABLET PO SCH (20:55)
[2018-10-22] MEDS: PREGABALIN 75 MG CAPSULE PO SCH (20:56)
[2018-10-22] MEDS: ACETAMINOPHEN 325 MG TABLET PO PRN (20:56)
[2018-10-22] MEDS: TRAZODONE 100MG TABLET PO SCH (20:56)
[2018-10-23 01:29] VITALS: BP 115/66
[2018-10-23 05:31] LABS: BASOPHILS # (AUTO) 0.06 x10^3/uL (0-0.1); BASOPHILS % (AUTO) 1 % (0-1); EOSINOPHILS # (AUTO) 0.78 x10^3/uL (0-0.4); EOSINOPHILS % (AUTO) 6 % (1-7); LYMPHOCYTES # (AUTO) 1.46 x10^3/uL (1-3.4); LYMPHOCYTES % (AUTO) 12 % (22-44); MD NO; MEAN CORPUSCULAR HEMOGLOBIN 29.3 pg (27.5-34.5); MEAN CORPUSCULAR HGB CONC 32.5 g/dL (33.2-36.2); MEAN CORPUSCULAR VOLUME 90.4 fL (81-97); MEAN PLATELET VOLUME 8.6 fL (7.4-10.4); MONOCYTES % (AUTO) 8 % (2-9); NEUTROPHILS # (AUTO) 8.77 x10^3/uL (1.8-6.8); NEUTROPHILS % (AUTO) 73 % (42-75); PLATELET COUNT 280 x10^3/uL (130-400); RED BLOOD COUNT 3.42 x10^6/uL (4.38-5.82); RED CELL DISTRIBUTION WIDTH 14.4 % (9.4-14.8)
[2018-10-23] MEDS: VANCOMYCIN 50 MG/ML ORAL SUSP PO SCH ×4 (05:40→23:38)
[2018-10-23 05:47] LABS: CHLORIDE 103 mmol/L (98-107)
[2018-10-23 06:15] LABS: ALANINE AMINOTRANSFERASE 35 U/L (12-78); ALBUMIN 1.8 g/dL (3.4-5.0); ALKALINE PHOSPHATASE 95 U/L (45-117); ANION GAP 9 mmol/L (5-15); BILIRUBIN,TOTAL 0.2 mg/dL (0.2-1.0); CALCIUM 8.7 mg/dL (8.5-10.1); TOTAL PROTEIN 6.2 g/dL (6.4-8.2)
[2018-10-23 08:00] VITALS: BP 120/61
[2018-10-23] MEDS: INSULIN LISPRO 100 UNITS/ML, PEN SQ-INSULIN SCH ×4 (08:10→20:11)
[2018-10-23] MEDS ORDERED: KETAMINE 10 MG/ML, 20ML ONE (08:20)
[2018-10-23] MEDS ORDERED: GLYCOPYRROLATE 0.2MG/1ML, 5ML ONE (08:20)
[2018-10-23] MEDS ORDERED: SUCCINYLCHOLINE 20 MG/ML, 10ML ONE (08:20)
[2018-10-23] MEDS ORDERED: NEOSTIGMINE 1 MG/ML, 10ML ONE (08:20)
[2018-10-23] MEDS ORDERED: PHENYLEPHRINE 10 MG/ML ONE (08:20)
[2018-10-23] MEDS ORDERED: CEFAZOLIN 1,000 MG ONE (08:20)
[2018-10-23] MEDS ORDERED: PROPOFOL 10 MG/ML, 20ML ONE (08:20)
[2018-10-23] MEDS: GENTAMICIN CRM 0.1%, 30GM TP SCH (09:00)
[2018-10-23] MEDS ORDERED: OXYcodone 5 MG/5 ML ORAL.SOL UDC PO PRN (09:30)
[2018-10-23] MEDS ORDERED: MEPERIDINE/PF 25MG/0.5ML IVPush PRN (09:30)
[2018-10-23] MEDS ORDERED: LORazepam 2 MG/ML, 1ML IVPush PRN (09:30)
[2018-10-23] MEDS ORDERED: ALBUTEROL SULFATE 2.5 MG/3 ML NPPB PRN (09:30)
[2018-10-23] MEDS ORDERED: hydrALAzine 20 MG/ML, 1ML IV PRN (09:30)
[2018-10-23] MEDS ORDERED: METOPROLOL 1 MG/ML, 5ML IV PRN (09:30)
[2018-10-23] MEDS ORDERED: HYDROmorphone 2 MG/ML, 1ML ONE (10:07)
[2018-10-23] MEDS: HYDROmorphone 2 MG/ML, 1ML IVPush PRN ×2 (10:10→10:29)
[2018-10-23] MEDS ORDERED: FENTANYL PF 100 MCG/2ML ONE (10:15)
[2018-10-23] MEDS ORDERED: OXYcodone 5 MG/5 ML ORAL.SOL UDC ONE (10:16)
[2018-10-23] MEDS: FENTANYL PF 100 MCG/2ML IV PRN ×2 (10:20→10:24)
[2018-10-23] MEDS: CITALOPRAM 20 MG TABLET PO SCH (12:09)
[2018-10-23] MEDS: LEVOTHYROXINE 100 MCG TABLET PO SCH (12:09)
[2018-10-23] MEDS: CALCIUM ACETATE 667 MG CAPSULE PO SCH ×3 (12:09→20:12)
[2018-10-23] MEDS: TAMSULOSIN 0.4 MG CAP.ER.24H PO SCH (12:09)
[2018-10-23] MEDS: SENNA/DOCUSATE TABLET PO SCH (12:10)
[2018-10-23] MEDS: MORPHINE SULFATE 4 MG/ML, 1ML IVPush PRN ×2 (13:10→17:47)
[2018-10-23] MEDS: ACETAMINOPHEN 325 MG TABLET PO PRN ×2 (13:10→20:11)
[2018-10-23] MEDS: CEFTRIAXONE PMX 1GM/50ML 50 ML IV SCH (13:11)
[2018-10-23] MEDS: SODIUM CHLORIDE FLUSH 10ML SYR IVF SCH ×2 (13:11→20:12)
[2018-10-23 14:00] VITALS: BP 112/70
[2018-10-23] MEDS ORDERED: MELATONIN 5 MG TABLET PO PRN (19:30)
[2018-10-23] MEDS: ATORVASTATIN 20 MG TABLET PO SCH (20:12)
[2018-10-23] MEDS: PREGABALIN 75 MG CAPSULE PO SCH (20:12)
[2018-10-23] MEDS: TRAZODONE 100MG TABLET PO SCH (20:12)
[2018-10-23 20:15] VITALS: BP 115/71
[2018-10-24 00:47] VITALS: BP 118/67
[2018-10-24] MEDS: VANCOMYCIN 50 MG/ML ORAL SUSP PO SCH ×3 (06:17→16:23)
[2018-10-24 08:05] VITALS: BP 118/63
[2018-10-24 08:15] LABS: MEAN CORPUSCULAR HEMOGLOBIN 29.1 pg (27.5-34.5); MEAN CORPUSCULAR HGB CONC 32.3 g/dL (33.2-36.2); MEAN CORPUSCULAR VOLUME 90.1 fL (81-97); MEAN PLATELET VOLUME 8.5 fL (7.4-10.4); PLATELET COUNT 321 x10^3/uL (130-400); RED BLOOD COUNT 3.28 x10^6/uL (4.38-5.82); RED CELL DISTRIBUTION WIDTH 14.6 % (9.4-14.8)
[2018-10-24 08:21] LABS: ALANINE AMINOTRANSFERASE 24 U/L (12-78); ALBUMIN 1.8 g/dL (3.4-5.0); ANION GAP 6 mmol/L (5-15); CALCIUM 8.8 mg/dL (8.5-10.1); CHLORIDE 102 mmol/L (98-107); CREATININE 6.09 mg/dL (0.7-1.3)
[2018-10-24 08:24] LABS: ALKALINE PHOSPHATASE 87 U/L (45-117); BILIRUBIN,TOTAL 0.2 mg/dL (0.2-1.0); TOTAL PROTEIN 6.4 g/dL (6.4-8.2)
[2018-10-24] MEDS: INSULIN LISPRO 100 UNITS/ML, PEN SQ-INSULIN SCH ×4 (08:25→20:14)
[2018-10-24] MEDS: LEVOTHYROXINE 100 MCG TABLET PO SCH (08:26)
[2018-10-24] MEDS: TAMSULOSIN 0.4 MG CAP.ER.24H PO SCH (08:26)
[2018-10-24] MEDS: SODIUM CHLORIDE FLUSH 10ML SYR IVF SCH ×2 (08:26→19:27)
[2018-10-24] MEDS: SENNA/DOCUSATE TABLET PO SCH (08:26)
[2018-10-24] MEDS: CITALOPRAM 20 MG TABLET PO SCH (08:26)
[2018-10-24] MEDS: CALCIUM ACETATE 667 MG CAPSULE PO SCH ×3 (08:26→20:14)
[2018-10-24] MEDS: GENTAMICIN OINT 0.1% 15GM TP SCH (08:27)
[2018-10-24 08:33] LABS: BASOPHILS # (AUTO) 0.03 x10^3/uL (0-0.1); BASOPHILS % (AUTO) 0 % (0-1); EOSINOPHILS # (AUTO) 0.21 x10^3/uL (0-0.4); EOSINOPHILS % (AUTO) 1 % (1-7); LYMPHOCYTES # (AUTO) 0.95 x10^3/uL (1-3.4); LYMPHOCYTES % (AUTO) 6 % (22-44); MD SCAN; MONOCYTES # (AUTO) 1.13 x10^3/uL (0.2-0.8); MONOCYTES % (AUTO) 7 % (2-9); NEUTROPHILS # (AUTO) 12.99 x10^3/uL (1.8-6.8); NEUTROPHILS % (AUTO) 85 % (42-75)
[2018-10-24] MEDS: MORPHINE SULFATE 4 MG/ML, 1ML IVPush PRN (11:09)
[2018-10-24] MEDS: CEFTRIAXONE PMX 1GM/50ML 50 ML IV SCH (12:37)
[2018-10-24 12:50] VITALS: BP 110/66
[2018-10-24 19:20] VITALS: BP 130/65
[2018-10-24] MEDS: TRAZODONE 100MG TABLET PO SCH (19:26)
[2018-10-24] MEDS: ATORVASTATIN 20 MG TABLET PO SCH (19:26)
[2018-10-24] MEDS: PREGABALIN 75 MG CAPSULE PO SCH (19:26)
[2018-10-25] MEDS: VANCOMYCIN 50 MG/ML ORAL SUSP PO SCH ×5 (00:42→23:56)
[2018-10-25 00:46] VITALS: BP 154/71
[2018-10-25] MEDS: INSULIN LISPRO 100 UNITS/ML, PEN SQ-INSULIN SCH ×4 (07:00→21:01)
[2018-10-25 08:16] VITALS: BP 135/63
[2018-10-25] MEDS: SENNA/DOCUSATE TABLET PO SCH (09:00)
[2018-10-25] MEDS: GENTAMICIN OINT 0.1% 15GM TP SCH ×2 (09:00→22:00)
[2018-10-25] MEDS: CALCIUM ACETATE 667 MG CAPSULE PO SCH ×3 (09:30→20:57)
[2018-10-25] MEDS: TAMSULOSIN 0.4 MG CAP.ER.24H PO SCH (09:30)
[2018-10-25] MEDS: CITALOPRAM 20 MG TABLET PO SCH (09:30)
[2018-10-25] MEDS: CALCITRIOL 0.25 MCG CAPSULE PO SCH (09:30)
[2018-10-25] MEDS: LEVOTHYROXINE 100 MCG TABLET PO SCH (09:30)
[2018-10-25] MEDS: SODIUM CHLORIDE FLUSH 10ML SYR IVF SCH ×2 (09:31→20:58)
[2018-10-25] MEDS: HEPARIN 5,000 UNITS/ML, 1ML SQ SCH ×2 (11:00→19:00)
[2018-10-25] MEDS: CEFTRIAXONE PMX 1GM/50ML 50 ML IV SCH (11:20)
[2018-10-25 14:18] VITALS: BP 132/69
[2018-10-25] MEDS ORDERED: VANCOMYCIN PMX 1GM/200ML 200 ML IV ONE (17:00)
[2018-10-25 20:40] VITALS: BP 133/75
[2018-10-25] MEDS: PREGABALIN 75 MG CAPSULE PO SCH (20:57)
[2018-10-25] MEDS: ATORVASTATIN 20 MG TABLET PO SCH (20:57)
[2018-10-25] MEDS: TRAZODONE 100MG TABLET PO SCH (20:57)
[2018-10-25] MEDS: MORPHINE SULFATE 4 MG/ML, 1ML IVPush PRN (20:58)
[2018-10-25 22:05] VITALS: BP 127/67
[2018-10-26 01:14] VITALS: BP 133/71
[2018-10-26] MEDS: HEPARIN 5,000 UNITS/ML, 1ML SQ SCH ×3 (03:00→17:54)
[2018-10-26] MEDS: LEVOTHYROXINE 100 MCG TABLET PO SCH (05:46)
[2018-10-26] MEDS: VANCOMYCIN 50 MG/ML ORAL SUSP PO SCH ×4 (05:46→23:23)
[2018-10-26] MEDS: SENNA/DOCUSATE TABLET PO SCH (07:44)
[2018-10-26] MEDS: CITALOPRAM 20 MG TABLET PO SCH (08:00)
[2018-10-26] MEDS: CALCIUM ACETATE 667 MG CAPSULE PO SCH ×2 (08:00→16:57)
[2018-10-26] MEDS: SODIUM CHLORIDE FLUSH 10ML SYR IVF SCH ×2 (08:00→19:55)
[2018-10-26] MEDS: CALCITRIOL 0.25 MCG CAPSULE PO SCH (08:00)
[2018-10-26] MEDS: TAMSULOSIN 0.4 MG CAP.ER.24H PO SCH (08:00)
[2018-10-26] MEDS: INSULIN LISPRO 100 UNITS/ML, PEN SQ-INSULIN SCH ×4 (08:01→20:21)
[2018-10-26 08:48] VITALS: BP 130/69
[2018-10-26] MEDS: MORPHINE SULFATE 4 MG/ML, 1ML IVPush PRN ×2 (10:09→19:55)
[2018-10-26] MEDS: CEFTRIAXONE PMX 1GM/50ML 50 ML IV SCH (11:47)
[2018-10-26] MEDS ORDERED: CALCIUM ACETATE 667 MG CAPSULE ONE (12:22)
[2018-10-26] MEDS ORDERED: CALCIUM ACETATE 667 MG CAPSULE PO SCH (12:30)
[2018-10-26 14:18] VITALS: BP 128/72
[2018-10-26] MEDS: GENTAMICIN OINT 0.1% 15GM TP SCH (19:30)
[2018-10-26 19:45] VITALS: BP 115/58
[2018-10-26] MEDS: ATORVASTATIN 20 MG TABLET PO SCH (19:55)
[2018-10-26] MEDS: PREGABALIN 75 MG CAPSULE PO SCH (19:55)
[2018-10-26] MEDS: TRAZODONE 100MG TABLET PO SCH (19:55)
[2018-10-26] MEDS: ERGOCALCIFEROL 50,000 UNIT CAPSULE PO SCH (20:20)
[2018-10-27 01:33] VITALS: BP 109/65
[2018-10-27] MEDS: HEPARIN 5,000 UNITS/ML, 1ML SQ SCH ×3 (03:12→21:13)
[2018-10-27 05:04] LABS: BASOPHILS # (AUTO) 0.05 x10^3/uL (0-0.1); BASOPHILS % (AUTO) 0 % (0-1); EOSINOPHILS # (AUTO) 0.63 x10^3/uL (0-0.4); EOSINOPHILS % (AUTO) 6 % (1-7); LYMPHOCYTES # (AUTO) 1.53 x10^3/uL (1-3.4); LYMPHOCYTES % (AUTO) 13 % (22-44); MD NO; MEAN CORPUSCULAR HEMOGLOBIN 29.5 pg (27.5-34.5); MEAN CORPUSCULAR HGB CONC 32.7 g/dL (33.2-36.2); MEAN CORPUSCULAR VOLUME 90.1 fL (81-97); MEAN PLATELET VOLUME 8.3 fL (7.4-10.4); MONOCYTES % (AUTO) 8 % (2-9); NEUTROPHILS # (AUTO) 8.34 x10^3/uL (1.8-6.8); NEUTROPHILS % (AUTO) 73 % (42-75); PLATELET COUNT 368 x10^3/uL (130-400); RED BLOOD COUNT 3.36 x10^6/uL (4.38-5.82); RED CELL DISTRIBUTION WIDTH 14.5 % (9.4-14.8)
[2018-10-27 05:07] LABS: ALBUMIN 1.7 g/dL (3.4-5.0); ANION GAP 8 mmol/L (5-15); CALCIUM 9.1 mg/dL (8.5-10.1); CHLORIDE 101 mmol/L (98-107)
[2018-10-27 05:12] LABS: ALANINE AMINOTRANSFERASE 26 U/L (12-78); ALKALINE PHOSPHATASE 91 U/L (45-117); BILIRUBIN,TOTAL 0.3 mg/dL (0.2-1.0); CREATININE 5.49 mg/dL (0.7-1.3); TOTAL PROTEIN 6.4 g/dL (6.4-8.2)
[2018-10-27] MEDS: LEVOTHYROXINE 100 MCG TABLET PO SCH (05:46)
[2018-10-27] MEDS: VANCOMYCIN 50 MG/ML ORAL SUSP PO SCH ×3 (05:46→16:44)
[2018-10-27 07:54] VITALS: BP 102/59
[2018-10-27] MEDS: INSULIN LISPRO 100 UNITS/ML, PEN SQ-INSULIN SCH ×4 (08:02→21:00)
[2018-10-27] MEDS: TAMSULOSIN 0.4 MG CAP.ER.24H PO SCH (08:02)
[2018-10-27] MEDS: CALCITRIOL 0.25 MCG CAPSULE PO SCH (08:02)
[2018-10-27] MEDS: CALCIUM ACETATE 667 MG CAPSULE PO SCH ×3 (08:02→16:44)
[2018-10-27] MEDS: CITALOPRAM 20 MG TABLET PO SCH (08:03)
[2018-10-27] MEDS: SENNA/DOCUSATE TABLET PO SCH (08:03)
[2018-10-27] MEDS: SODIUM CHLORIDE FLUSH 10ML SYR IVF SCH ×2 (08:03→21:14)
[2018-10-27] MEDS: MORPHINE SULFATE 4 MG/ML, 1ML IVPush PRN ×2 (10:56→22:59)
[2018-10-27] MEDS: CEFTRIAXONE PMX 1GM/50ML 50 ML IV SCH (11:02)
[2018-10-27 13:40] VITALS: BP 112/62
[2018-10-27 19:51] VITALS: BP 117/66
[2018-10-27] MEDS: ATORVASTATIN 20 MG TABLET PO SCH (21:13)
[2018-10-27] MEDS: TRAZODONE 100MG TABLET PO SCH (21:13)
[2018-10-27] MEDS: PREGABALIN 75 MG CAPSULE PO SCH (21:13)
[2018-10-28 02:00] VITALS: BP 105/61
[2018-10-28] MEDS: VANCOMYCIN 50 MG/ML ORAL SUSP PO SCH ×4 (06:10→18:28)
[2018-10-28] MEDS: HEPARIN 5,000 UNITS/ML, 1ML SQ SCH ×3 (06:11→20:53)
[2018-10-28] MEDS: LEVOTHYROXINE 100 MCG TABLET PO SCH (06:11)
[2018-10-28 07:55] VITALS: BP 121/69
[2018-10-28] MEDS: INSULIN LISPRO 100 UNITS/ML, PEN SQ-INSULIN SCH ×4 (08:28→20:53)
[2018-10-28] MEDS: CALCITRIOL 0.25 MCG CAPSULE PO SCH (08:28)
[2018-10-28] MEDS: CALCIUM ACETATE 667 MG CAPSULE PO SCH ×3 (08:29→18:28)
[2018-10-28] MEDS: SODIUM CHLORIDE FLUSH 10ML SYR IVF SCH ×2 (08:29→20:52)
[2018-10-28] MEDS: CITALOPRAM 20 MG TABLET PO SCH (08:29)
[2018-10-28] MEDS: SENNA/DOCUSATE TABLET PO SCH (08:29)
[2018-10-28] MEDS: TAMSULOSIN 0.4 MG CAP.ER.24H PO SCH (08:43)
[2018-10-28] MEDS ORDERED: OXYcodone IR 5MG TABLET PO PRN (09:00)
[2018-10-28] MEDS: GENTAMICIN OINT 0.1% 15GM TP SCH (09:00)
[2018-10-28 13:31] VITALS: BP 110/69
[2018-10-28] MEDS: ATORVASTATIN 20 MG TABLET PO SCH (20:53)
[2018-10-28] MEDS: PREGABALIN 75 MG CAPSULE PO SCH (20:53)
[2018-10-28] MEDS: TRAZODONE 100MG TABLET PO SCH (20:53)
[2018-10-28 21:26] VITALS: BP 150/71
[2018-10-29] MEDS: VANCOMYCIN 50 MG/ML ORAL SUSP PO SCH ×3 (00:36→12:14)
[2018-10-29 03:50] VITALS: BP 112/68
[2018-10-29 05:48] LABS: BASOPHILS # (AUTO) 0.06 x10^3/uL (0-0.1); BASOPHILS % (AUTO) 1 % (0-1); EOSINOPHILS # (AUTO) 0.75 x10^3/uL (0-0.4); EOSINOPHILS % (AUTO) 6 % (1-7); LYMPHOCYTES # (AUTO) 2.03 x10^3/uL (1-3.4); LYMPHOCYTES % (AUTO) 15 % (22-44); MD NO; MEAN CORPUSCULAR HEMOGLOBIN 29.3 pg (27.5-34.5); MEAN CORPUSCULAR HGB CONC 33.1 g/dL (33.2-36.2); MEAN CORPUSCULAR VOLUME 88.6 fL (81-97); MEAN PLATELET VOLUME 8.3 fL (7.4-10.4); MONOCYTES # (AUTO) 0.92 x10^3/uL (0.2-0.8); MONOCYTES % (AUTO) 7 % (2-9); NEUTROPHILS % (AUTO) 72 % (42-75); PLATELET COUNT 424 x10^3/uL (130-400); RED BLOOD COUNT 3.54 x10^6/uL (4.38-5.82); RED CELL DISTRIBUTION WIDTH 14.5 % (9.4-14.8)
[2018-10-29 05:58] LABS: CHLORIDE 101 mmol/L (98-107)
[2018-10-29] MEDS: LEVOTHYROXINE 100 MCG TABLET PO SCH (06:12)
[2018-10-29] MEDS: HEPARIN 5,000 UNITS/ML, 1ML SQ SCH (06:12)
[2018-10-29 06:15] LABS: ALANINE AMINOTRANSFERASE 33 U/L (12-78); ALBUMIN 1.7 g/dL (3.4-5.0); ALKALINE PHOSPHATASE 103 U/L (45-117); ANION GAP 8 mmol/L (5-15); BILIRUBIN,TOTAL 0.6 mg/dL (0.2-1.0); CALCIUM 9.3 mg/dL (8.5-10.1); CREATININE 5.43 mg/dL (0.7-1.3); TOTAL PROTEIN 6.6 g/dL (6.4-8.2)
[2018-10-29] MEDS: INSULIN LISPRO 100 UNITS/ML, PEN SQ-INSULIN SCH ×2 (07:00→12:14)
[2018-10-29 07:35] VITALS: BP 118/66
[2018-10-29] MEDS: SENNA/DOCUSATE TABLET PO SCH (09:00)
[2018-10-29] MEDS: CALCIUM ACETATE 667 MG CAPSULE PO SCH ×2 (09:17→12:15)
[2018-10-29] MEDS: GENTAMICIN OINT 0.1% 15GM TP SCH (09:17)
[2018-10-29] MEDS: CITALOPRAM 20 MG TABLET PO SCH (09:18)
[2018-10-29] MEDS: TAMSULOSIN 0.4 MG CAP.ER.24H PO SCH (09:18)
[2018-10-29] MEDS: SODIUM CHLORIDE FLUSH 10ML SYR IVF SCH (09:18)
[2018-10-29] MEDS: CALCITRIOL 0.25 MCG CAPSULE PO SCH (09:18)
[2018-10-29] MEDS ORDERED: VANC1VIA3 PO (12:37)
[2018-10-29] MEDS ORDERED: OXYC5TAB3 PO (12:37)
[2018-10-29] MEDS ORDERED: PREG75CA PO (12:37)
[2018-10-29] MEDS ORDERED: BISA10SU65 PR (12:37)
[2018-10-29] MEDS ORDERED: HEPA50002 SQ (12:37)
[2018-10-29] MEDS ORDERED: ONDA4TAB13 PO (12:37)
[2018-10-29] MEDS ORDERED: LEVO100T PO (12:37)
[2018-10-29] MEDS ORDERED: MELA5TAB19 PO (12:37)
[2018-10-29] MEDS ORDERED: INSU100I11 SQ-INSULIN (12:37)
[2018-10-29] MEDS ORDERED: CALC667C PO (12:37)
[2018-10-29 13:15] VITALS: BP 126/69
== END 2018-10-29 14:23 | DRG 270 ==
LOC: ED 17:23 → EDIP 19:31 → 4WST 20:26
PROVIDERS: ADMIT Internal Medicine; ATTEND Internal Medicine
PROC: 04CK3ZZ Extirpation of Matter from Right Femoral Artery, Percutaneous Approach (ICD-10-PCS; principal; 2018-10-14)
PROC: 04CM3ZZ Extirpation of Matter from Right Popliteal Artery, Percutaneous Approach (ICD-10-PCS; 2018-10-14)
PROC: 047K3DZ Dilation of Right Femoral Artery with Intraluminal Device, Percutaneous Approach (ICD-10-PCS; 2018-10-14)
PROC: B41D1ZZ Fluoroscopy of Aorta and Bilateral Lower Extremity Arteries using Low Osmolar Contrast (ICD-10-PCS; 2018-10-14)
PROC: B41F1ZZ Fluoroscopy of Right Lower Extremity Arteries using Low Osmolar Contrast (ICD-10-PCS; 2018-10-14)
PROC: 5A1D70Z Performance of Urinary Filtration, Intermittent, Less than 6 Hours Per Day (ICD-10-PCS; 2018-10-14)
PROC: 5A1D70Z Performance of Urinary Filtration, Intermittent, Less than 6 Hours Per Day (ICD-10-PCS; 2018-10-15)
PROC: 5A1D70Z Performance of Urinary Filtration, Intermittent, Less than 6 Hours Per Day (ICD-10-PCS; 2018-10-16)
PROC: 5A1D70Z Performance of Urinary Filtration, Intermittent, Less than 6 Hours Per Day (ICD-10-PCS; 2018-10-17)
PROC: 5A1D70Z Performance of Urinary Filtration, Intermittent, Less than 6 Hours Per Day (ICD-10-PCS; 2018-10-18)
PROC: 5A1D70Z Performance of Urinary Filtration, Intermittent, Less than 6 Hours Per Day (ICD-10-PCS; 2018-10-19)
PROC: 5A1D70Z Performance of Urinary Filtration, Intermittent, Less than 6 Hours Per Day (ICD-10-PCS; 2018-10-20)
PROC: 5A1D70Z Performance of Urinary Filtration, Intermittent, Less than 6 Hours Per Day (ICD-10-PCS; 2018-10-21)
PROC: 5A1D70Z Performance of Urinary Filtration, Intermittent, Less than 6 Hours Per Day (ICD-10-PCS; 2018-10-22)
PROC: 5A1D70Z Performance of Urinary Filtration, Intermittent, Less than 6 Hours Per Day (ICD-10-PCS; 2018-10-23)
PROC: 0Y6H0Z1 Detachment at Right Lower Leg, High, Open Approach (ICD-10-PCS; 2018-10-23)
PROC: 5A1D70Z Performance of Urinary Filtration, Intermittent, Less than 6 Hours Per Day (ICD-10-PCS; 2018-10-24)
PROC: 5A1D70Z Performance of Urinary Filtration, Intermittent, Less than 6 Hours Per Day (ICD-10-PCS; 2018-10-25)
PROC: 5A1D70Z Performance of Urinary Filtration, Intermittent, Less than 6 Hours Per Day (ICD-10-PCS; 2018-10-26)
PROC: 5A1D70Z Performance of Urinary Filtration, Intermittent, Less than 6 Hours Per Day (ICD-10-PCS; 2018-10-28)
DX: E11.52 Type 2 diabetes mellitus with diabetic peripheral angiopathy with gangrene (principal); G92 Toxic encephalopathy; N18.6 End stage renal disease; E43 Unspecified severe protein-calorie malnutrition; I12.0 Hypertensive chronic kidney disease with stage 5 chronic kidney disease or end stage renal disease; L03.115 Cellulitis of right lower limb; N13.30 Unspecified hydronephrosis; A04.72 Enterocolitis due to Clostridium difficile, not specified as recurrent; I13.11 Hypertensive heart and chronic kidney disease without heart failure, with stage 5 chronic kidney disease, or end stage renal disease; K56.7 Ileus, unspecified; M86.171 Other acute osteomyelitis, right ankle and foot; Q60.0 Renal agenesis, unilateral; I70.201 Unspecified atherosclerosis of native arteries of extremities, right leg; I77.1 Stricture of artery; D63.1 Anemia in chronic kidney disease; E03.9 Hypothyroidism, unspecified; E11.22 Type 2 diabetes mellitus with diabetic chronic kidney disease; E11.621 Type 2 diabetes mellitus with foot ulcer; E11.65 Type 2 diabetes mellitus with hyperglycemia; E11.69 Type 2 diabetes mellitus with other specified complication; E78.5 Hyperlipidemia, unspecified; E83.51 Hypocalcemia; G54.6 Phantom limb syndrome with pain; I25.10 Atherosclerotic heart disease of native coronary artery without angina pectoris; K80.20 Calculus of gallbladder without cholecystitis without obstruction; L97.519 Non-pressure chronic ulcer of other part of right foot with unspecified severity; N25.0 Renal osteodystrophy; T39.95XA Adverse effect of unspecified nonopioid analgesic, antipyretic and antirheumatic, initial encounter; T40.605A Adverse effect of unspecified narcotics, initial encounter; Z87.891 Personal history of nicotine dependence; Z68.26 Body mass index [BMI] 26.0-26.9, adult; Z79.2 Long term (current) use of antibiotics; Z83.3 Family history of diabetes mellitus; Z89.511 Acquired absence of right leg below knee; Z89.512 Acquired absence of left leg below knee; Z91.15 Patient's noncompliance with renal dialysis; Z95.1 Presence of aortocoronary bypass graft; Z99.2 Dependence on renal dialysis
CPT/HCPCS: 36415; 37226; 37227; 74018; 74176; 75710; 76937; 80048; 80053; 80202; 82306; 82728; 82962; 83036; 83540; 83550; 83970; 84100; 84550; 85025; 85520; 85651; 86140; 86704; 86706; 86803; 87040; 87070; 87077; 87081; 87186; 87205; 87324; 87340; 87493; 88307; 88311; 93005; 93926; 93971; 96374; 96375; 99156; 99157; 99285; C1725; C1729; G0378; J0295; J0690; J0696; J1170; J1644; J2250; J2405; J2543; J2704; J2710; J2720; J2997; J3010; J3370; J3490; Q9966; C1714; C1751; C1769; C1876; C1884; C1894; J0330; J1815; J2310; J2370; J7050

== ENCOUNTER 2019-08-10 12:27 | Emergency (ER) | payer MEDICARE ==
[~2019-08-10] VITALS: Ht 134.6 cm; Wt 80.0 kg
[~2019-08-10 12:27] MED LIST changes: +ASPI81TA45 PO; +BISA10SU65 PR; +CALC0.25 PO; +CALC667C PO; +CARV3.12 PO; +CEFD300C37 PO; +CEPH-376 PO; +CIPR500T87 PO; +CITA20TA9 PO; +CLOP75TA52 PO; +ERGO500017 PO; +FINA5TAB PO; +GLIP10TA13 PO; +HEPA50002 SQ; +INSU100I11 SQ-INSULIN; +INSU100I34 SQ-INSULIN; +LEVO100T PO; +LEVO100T5 PO; +MELA5TAB14 PO; +ONDA4TAB13 PO; +OXYC1TAB7 PO; +OXYC5TAB3 PO; +POTA20TA14 PO; +TAMS0.4C2 PO; +VANC1VIA3 PO
--- NOTE | 2019-08-10 12:34 | NUR ---
THIS IS A 73 YEAR OLD MALE WHO WAS BIB BY AMBULANCE DUE TO LOW BP. PT CALLED EMS DUE TO DIZZINESS, PT WAS FOUND TO HAVE BP 80/40, HR 70. C/O OF LEFT HAMSTRING PAIN 7/10. PT HAS HX OF CABD AND STENT, DM WITH DIALYSIS. PT WAS GIVEN 800CC NS, 150MC OF FENAYL AND 4 ZOFRAN IV. PRESSURE UP TO 90/60. IN ROUTE PT HAD A RUN OF A FLUTTER. PT PLACED ON WAFFLE MATTRESS, EVENT SALES ASSISTANT SINUS, SP02 AT 97%, AT 2LNC, AND CYCLE VS. PT STATES PAIN IS 4/10 AT THIS TIME
[2019-08-10 12:56] LABS: BASOPHILS # (AUTO) 0.07 x10^3/uL (0-0.1); BASOPHILS % (AUTO) 1 % (0-1); EOSINOPHILS # (AUTO) 0.78 x10^3/uL (0-0.4); EOSINOPHILS % (AUTO) 6 % (1-7); LYMPHOCYTES # (AUTO) 1.36 x10^3/uL (1-3.4); LYMPHOCYTES % (AUTO) 11 % (22-44); MD NO; MEAN CORPUSCULAR HGB CONC 31.9 g/dL (33.2-36.2); MEAN CORPUSCULAR VOLUME 90.9 fL (81-97); MEAN PLATELET VOLUME 8.6 fL (7.4-10.4); MONOCYTES # (AUTO) 0.96 x10^3/uL (0.2-0.8); MONOCYTES % (AUTO) 8 % (2-9); NEUTROPHILS # (AUTO) 9.68 x10^3/uL (1.8-6.8); NEUTROPHILS % (AUTO) 75 % (42-75); PLATELET COUNT 302 x10^3/uL (130-400); RED BLOOD COUNT 3.78 x10^6/uL (4.38-5.82); RED CELL DISTRIBUTION WIDTH 19.3 % (9.4-14.8)
[2019-08-10] MEDS ORDERED: SODIUM CHLORIDE 0.9% 1,000ML IVBOLUS ONE (13:00)
[2019-08-10 13:06] LABS: ALBUMIN 2.5 g/dL (3.4-5.0); ANION GAP 6 mmol/L (5-15); CALCIUM 8.4 mg/dL (8.5-10.1); CHLORIDE 103 mmol/L (98-107)
[2019-08-10 13:09] LABS: ALANINE AMINOTRANSFERASE 9 U/L (12-78); ALKALINE PHOSPHATASE 121 U/L (45-117); BILIRUBIN,TOTAL 0.4 mg/dL (0.2-1.0); CREATININE 3.73 mg/dL (0.7-1.3); TOTAL PROTEIN 6.7 g/dL (6.4-8.2)
--- NOTE | 2019-08-10 13:13 | NUR ---
PT RESTING, ULTRASOUND IN ROOM
--- NOTE | 2019-08-10 13:46 | NUR ---
PT TRANSFERED TO ROOM 28, REPORT TO EDITH FAJARDO, PLAN OF CARE DISCUSSED.
--- NOTE | 2019-08-10 15:24 | NUR ---
PT REPORT FROM SCOTTY SHARMA. PT CARE TO BE ASSUMED.
--- NOTE | 2019-08-10 15:50 | NUR ---
Jose Alberto hutchison in ED - 08/10/19 at 1627 by [facility]AN MED REC & VS NOT RECORDED BY PRIOR NURSE.
--- NOTE | 2019-08-10 16:35 | NUR ---
PT ASLEEP; EASILY AWAKENED. SON IN ROOM. PT NOTIFIED OF PENDING DC. PT A&OX4, RESP EVEN & UNLABORED, SPEECH CLEAR. MONITORING CONTINUING. DENIES PAIN CURRENTLY.
[2019-08-10 16:37] VITALS: BP 127/52
[2019-08-11] MEDS ORDERED: MULT-658 PO (17:01)
[2019-08-11] MEDS ORDERED: POLY17PO5 PO (17:01)
[2019-08-11] MEDS ORDERED: CALC667C PO (17:01)
[2019-08-11] MEDS ORDERED: LEVO112T4 PO (17:01)
[2019-08-11] MEDS ORDERED: SERT25TA3 PO (17:01)
[2019-08-11] MEDS ORDERED: FINA5TAB4 PO (17:01)
[2019-08-11] MEDS ORDERED: TAMS-11 PO (17:01)
[2019-08-11] MEDS ORDERED: ROSU40TA PO (17:01)
[2019-08-11] MEDS ORDERED: DOCU-131 PO (17:01)
[2019-08-11] MEDS ORDERED: CALC0.25 PO (17:01)
[2019-08-11] MEDS ORDERED: INSU100V8 SQ (22:20)
[2019-08-11] MEDS ORDERED: PREG50CA PO (22:21)
[2019-08-13] MEDS ORDERED: ASPI-515 PO (16:04)
== END 2019-08-10 16:58 | disposition home or self-care (01) ==
LOC: ED 16:50
DX: R42 Dizziness and giddiness (principal); I95.9 Hypotension, unspecified; E86.1 Hypovolemia; M79.662 Pain in left lower leg; E11.9 Type 2 diabetes mellitus without complications
CPT/HCPCS: 36415; 73564; 80053; 83605; 85025; 93005; 93971; 99284; J7030

== ENCOUNTER 2019-08-15 02:12 | Emergency (ER) | payer MEDICARE ==
[~2019-08-15] VITALS: Ht 185.4 cm; Wt 84.0 kg
[~2019-08-15 02:12] MED LIST changes: +ASPI-515 PO; +DOCU-131 PO; +FINA5TAB4 PO; +INSU100V8 SQ; +LEVO112T4 PO; +MULT-658 PO; +POLY17PO5 PO; +PREG50CA PO; +ROSU40TA PO; +SERT25TA3 PO; +TAMS-11 PO
--- NOTE | 2019-08-15 02:33 | NUR ---
PT BIB [facility] TONIGHT W/ CO CP X SEVERAL HOURS WITH ABDOMINAL PAIN. PT RECENTLY ADMITTED AND D/C FROM [facility] ED FOR ELEVATED TROPONIN AND CHEST PAIN. EKG EN ROUTE TO [facility] ED UNREMARKABLE PER EMS. IN FIELD VS- BP 160/84, HR-84 SR, FSBS 146, R-17. UPON ARRIVAL TO [facility] ED, PT TRANSFERRED TO [facility] AND CHANGED INTO GOWN. PT PLACED ON VS MACHINE AND SHIFT PRODUCTION SUPERVISOR WITH EKG OBTAINED AT BS. PT VSS AT THIS TIME. SPOUSE AT BS. PT AND SPOUSE EDUCATED ON ER PROCESS AND PLAN OF CARE. PT VERBALIZES UNDERSTANDING. AWAITING ERP HISTORY AND ASSESSMENT AT THIS TIME.
[2019-08-15] MEDS ORDERED: SODIUM CHLORIDE FLUSH 10ML SYR IVF ONE (03:00)
--- NOTE | 2019-08-15 03:03 | NUR ---
PT TO CT VIA [facility] AT THIS TIME.
[2019-08-15 03:46] LABS: BASOPHILS # (AUTO) 0.04 x10^3/uL (0-0.1); BASOPHILS % (AUTO) 0 % (0-1); EOSINOPHILS # (AUTO) 0.83 x10^3/uL (0-0.4); EOSINOPHILS % (AUTO) 8 % (1-7); LYMPHOCYTES # (AUTO) 1.66 x10^3/uL (1-3.4); LYMPHOCYTES % (AUTO) 17 % (22-44); MD NO; MEAN CORPUSCULAR HEMOGLOBIN 28.6 pg (27.5-34.5); MEAN CORPUSCULAR HGB CONC 32.1 g/dL (33.2-36.2); MEAN PLATELET VOLUME 8.6 fL (7.4-10.4); MONOCYTES # (AUTO) 0.95 x10^3/uL (0.2-0.8); MONOCYTES % (AUTO) 10 % (2-9); NEUTROPHILS # (AUTO) 6.36 x10^3/uL (1.8-6.8); NEUTROPHILS % (AUTO) 65 % (42-75); PLATELET COUNT 293 x10^3/uL (130-400); RED BLOOD COUNT 3.97 x10^6/uL (4.38-5.82); RED CELL DISTRIBUTION WIDTH 18.1 % (9.4-14.8)
[2019-08-15] MEDS ORDERED: MORPHINE SULFATE 4 MG/ML, 1ML ONE (03:48)
[2019-08-15 03:52] LABS: ALANINE AMINOTRANSFERASE 12 U/L (12-78); ALBUMIN 2.5 g/dL (3.4-5.0); ANION GAP 8 mmol/L (5-15); CALCIUM 9.7 mg/dL (8.5-10.1); CHLORIDE 102 mmol/L (98-107); CREATININE 4.35 mg/dL (0.7-1.3)
[2019-08-15 03:57] LABS: ALKALINE PHOSPHATASE 129 U/L (45-117); BILIRUBIN,TOTAL 0.3 mg/dL (0.2-1.0); TOTAL PROTEIN 7.5 g/dL (6.4-8.2); TROPONIN I 0.087 ng/mL (0.000-0.045)
--- NOTE | 2019-08-15 03:59 | NUR ---
PT MEDICATED PER MAR. PT REQUESTING TO BE CONTACTED WITH PT UPDATES. MRS. SINGER- [phone]. SON ADALGISA IS EMERGENCY CONTACT IF UNABLE TO REACH . ADALGISA SINGER'S NUMBER IS [phone]
[2019-08-15] MEDS ORDERED: morphine SULFATE 10 MG/ML, 1ML IVPush ONE (04:00)
[2019-08-15 04:01] VITALS: BP 157/81
--- NOTE | 2019-08-15 04:48 | NUR ---
[facility] set up for patient to go home. Justification for transport via [facility]: Bilateral BKA's. ETA 0515.
--- NOTE | 2019-08-15 05:22 | NUR ---
PT D/C IN CARE OF [facility] FOR TRANSPORT HOME. PT VSS PRIOR TO D/C. PT IV D/C WITH TIP INTACT. PT DENIES ANY OTHER NEEDS PERTAINING TO THIS HOSPITALIZATION.
== END 2019-08-15 05:25 | disposition home or self-care (01) ==
LOC: ED 04:48
DX: M79.662 Pain in left lower leg (principal); E11.22 Type 2 diabetes mellitus with diabetic chronic kidney disease; I12.0 Hypertensive chronic kidney disease with stage 5 chronic kidney disease or end stage renal disease; N18.6 End stage renal disease; Z99.2 Dependence on renal dialysis; E11.65 Type 2 diabetes mellitus with hyperglycemia; E78.5 Hyperlipidemia, unspecified; E03.9 Hypothyroidism, unspecified; I25.810 Atherosclerosis of coronary artery bypass graft(s) without angina pectoris; Z89.512 Acquired absence of left leg below knee; Z89.511 Acquired absence of right leg below knee
CPT/HCPCS: 36415; 71045; 80053; 83690; 83880; 84484; 85025; 93005; 93971; 96374; 99284; J2270